=== PATIENT | male | born 2000 | race Caucasian/White ===

== ENCOUNTER → 2024-08-18 | Outpatient (CLI) | payer OTHER, SELFPAY ==
--- NOTE | 2024-08-18 15:27 | XR_ITS ---
Examination: MRI left hip without intravenous contrast. Date and time of exam: August 18, 2024 1554 hrs. Indications: Bilateral hip pain beginning 2020, stabbing pain in the left hip Technique: Multiple MRI images of the left hip have been obtained T1 weighted coronal sections, TR 500, TE 12 Proton density coronal fat saturated images, TR 3000, TE 71 T2-weighted coronal images, 5850, TE 104 T1-weighted axial images, TR 521, TE 12 T2-weighted axial fat suppressed images, TR 5730, TE 103. Findings: No left hip fracture bone contusion or marrow edema Adequate marrow signal right hip and bones of the pelvis Suspicious for anterior inferior left hip labral tear Contracted urinary bladder No prostatomegaly Impression: Recommend this patient return for MR arthrography followed by post intra-articular contrast images left hip to exclude anterior inferior left hip labral tear
--- NOTE | 2024-08-18 15:27 | XR_ITS ---
Examination: MRI right hip without intravenous contrast. Date and time of exam: August 18, 2024 1554 hrs. Indications: Intraoperative 2020 with persistent hip pain Technique: Multiple MRI images of the right hip have been obtained T1 weighted coronal sections, TR 500, TE 12 Proton density coronal fat saturated images, TR 3000, TE 71 T2-weighted coronal images, 5850, TE 104 T1-weighted axial images, TR 521, TE 12 T2-weighted axial fat suppressed images, TR 5730, TE 103. Findings: No right hip marrow edema, bone contusion, occult fracture No avascular necrosis No labral tear noted Negative for greater trochanteric bursitis right hip Minimal hip effusion Adequate marrow signal bones of the pelvis Contracted urinary bladder No free fluid in the pelvis No prostatomegaly Impression: No occult fracture, bone contusion, marrow edema or avascular necrosis No labral tear identified
== END | disposition home or self-care (01) ==
LOC: SMRI 15:01
PROVIDERS: PCP Family Medicine; Referring Provider Family Medicine; Visit Provider Family Medicine
DX: S79.919A Unspecified injury of unspecified hip, initial encounter (principal); S73.102A Unspecified sprain of left hip, initial encounter; X58.XXXA Exposure to other specified factors, initial encounter
CPT/HCPCS: 73721

== ENCOUNTER 2025-06-10 10:40 | Emergency (ER) | payer OTHER, SELFPAY ==
--- NOTE | 2025-06-10 11:09 | PD.EDRME ---
Rapid Medical Screening Exam RME Arrival date/time: 06/10/25 10:40 24-year-old male presents to the emergency department today for complaints of nausea vomiting and diarrhea which began last night Chief Complaint: Nausea/Vomiting/Diarrhea
[2025-06-10 11:17] VITALS: BP 125/62; PULSE 106; RESP 16; TEMP 37.1; O2SAT 99; BMI 26.0
[2025-06-10 11:35] LABS: Basophils # (Auto) 0.0 Thou/mm3 (0.0-0.2); Basophils % (Auto) 0 % (0-2.5); Eosinophils # (Auto) 0.0 Thou/mm3 (0.0-0.5); Eosinophils % (Auto) 0 % (0-10); Hematocrit 49.6 % (41.0-53.0); Hemoglobin 16.4 g/dL (13.5-16.0); Immature Granulocytes Auto 0.01 Thou/mm3 (0.00-0.00); Lymphocytes # (Auto) 0.3 Thou/mm3 (1.0-4.8); Lymphocytes % (Auto) 5 % (10-50); Mean Corpuscular HGB Conc 33.1 g/dl (31.0-37.0); Mean Corpuscular Hemoglobin 28.7 pg (25.0-35.0); Mean Corpuscular Volume 87 fL (80-100); Monocytes # (Auto) 0.3 Thou/mm3 (0.0-0.8); Monocytes % (Auto) 7 % (0-12); Neutrophils # (Auto) 4.2 Thou/mm3 (1.8-7.7); Neutrophils % (Auto) 87 % (37-80); Nucleated Red Blood Cell # 0.00 Thou/mm3 (0.00-0.00); Nucleated Red Blood Cell % 0 /100 WBC (0); Platelet Count 191 Thou/mm3 (140-440); RDW Standard Deviation 43.0 fL (35.1-43.9); Red Blood Count 5.71 Miln/mm3 (4.50-5.90); White Blood Count 4.8 Thou/mm3 (3.8-10.6)
[2025-06-10 11:52] LABS: Alanine Aminotransferase 95 U/L (10-49); Albumin, Serum 5.3 gm/dL (3.5-5.0); Albumin/Globulin Ratio 2.1 (1.2-2.2); Alkaline Phosphatase 57 U/L (46-116); Anion Gap 9 (7-16); Aspartate Amino Transferase 63 U/L (0-34); BUN/Creatinine Ratio 14 Ratio (12-20); Bilirubin,Total 1.4 mg/dL (0.3-1.2); Blood Urea Nitrogen 18 mg/dL (9-23); Calcium 10.6 mg/dL (8.3-10.6); Calcium (Corrected) 10.6 mg/dL (8.5-10.1); Carbon Dioxide 26.7 mMol/L (20.0-31.0); Chloride 103 mMol/L (98-107); Creatinine (Component) 1.3 mg/dL (0.6-1.3); Estimated Creatinine Clearance 96.2 mL/min (>60); Globulin 2.5 gm/dL (2.3-3.5); Glucose 136 mg/dL (74-106); Osmolality,Calculated 281 (275-295); Potassium 4.7 mMol/L (3.4-5.1); Sodium 139 mMol/L (136-145); Total Protein 7.8 gm/dL (5.7-8.2); eGFR > 60 See Note
[2025-06-10 12:12] LABS: Collection Type, Urine Clean Catch; Squamous Epithelial Cell,Urine 0 /hpf (0-5)
[2025-06-10 12:28] LABS: Bilirubin,Urine 1+ (Negative); Blood,Urine Negative (Negative); Clarity,Urine Clear (Clear/Hazy); Color,Urine Yellow (Lt Yel-Yel); Culture Indicated,Urine Not Indicated; Glucose, Urine Negative (Negative); Ketones,Urine 1+ (Negative); Leukocyte Esterase,Urine Negative (Negative); Nitrite,Urine Negative (Negative); PH,Urine 6.0 (5.0-7.0); Protein,Urine 1+ (Neg - Trace); Specific Gravity,Urine 1.025 (1.001-1.035); Urobilinogen,Urine 0.2 mg/dL (0.0-1.0)
[2025-06-10 12:40] LABS: RBC,Urine 3 /hpf (0-3); WBC,Urine 1 /hpf (0-5)
--- NOTE | 2025-06-10 13:26 | PD.EDNV ---
Nausea/Vomit./Diarrhea-RME/HPI General Chief complaint: Nausea/Vomiting/Diarrhea Stated complaint: N/V/D SINCE LAST NIGHT Time Seen by Provider: 06/10/25 13:13 Arrival date/time: 06/10/25 10:40 RME / HPI RME / HPI Narrative: 24-year-old male presents to the emergency department today for complaints of nausea vomiting and diarrhea which began last night. Severity of symptoms moderate. At least 20 times nonbloody. Patient cannot take anything down due to vomiting. Patient denies any abdominal pain. Patient also complaining of worsening chronic back pain, he got injured while in the morning, currently seen in [facility]. Denies any other complaints no medication was taken prior to ER visit. Patient denies any smoking marijuana. Related Data Previous Rx's ?Medication ?Instructions ?Recorded famotidine 40 mg tablet (Pepcid) 40 mg PO BID #20 tabs 06/10/25 ibuprofen 800 mg tablet 800 mg PO TID PRN pain #30 tabs 06/10/25 methocarbamol 500 mg tablet 500 mg PO Q8H #20 tabs 06/10/25 ondansetron HCl 4 mg tablet 4 mg PO Q8H 5 days #15 tabs 06/10/25 Allergies Allergy/AdvReac Type Severity Reaction Status Date / Time No Known Allergies Allergy Verified 06/10/25 13:28 Review of Systems Review of Systems Narrative Review of Systems: Review of system reviewed and within normal limits except mentioned in HPI ED Exam Narrative Physical exam: VITAL SIGNS: Reviewed. GENERAL APPEARANCE: Alert and interactive, follows commands, no acute distress, HEAD AND FACE: Non-traumatic. ENT: PERRL, pink conjunctivitis, eyelid no trauma, Mucous membrane dry NECK: Supple, nontender, no nuchal rigidity. CHEST: No tenderness, no crepitus, no paradoxical movement, no retractions. LUNGS: Clear, well ventilated, symmetric, no rales, no wheezing, no ronchi, no stridor, good breath sounds bilaterally. HEART: Regular rate, regular rhythm, no murmur, no gallops. ABDOMEN: Soft, positive bowel sounds, nondistended, no guarding, nontender, no rebound, no masses, RECTAL: Deferred. GENITAL: Deferred. NEUROLOGICAL: Gross motor function intact sensory function intact, Appropriate for age. MUSCULOSKELETAL: low back tenderness, full range of motion. EXTREMITIES: Nontender, full range of motion. SKIN: Color pink, dry, no rash, no lacerations, no abrasions, no contusions. LYMPHATICS: Deferred. Course Quality Measures none Orders Category Date Time Status Bedside COVID-19 Antigen Test NOW Care 06/10/25 11:09 Active Bedside Influenza A&B Antigen Test NOW Care 06/10/25 11:09 Active CBC Stat Lab 06/10/25 11:24 Completed Comprehensive Metabolic Panel Stat Lab 06/10/25 11:24 Completed UA, C/S IF [Urinalysis, C/S if Indicated] Stat Lab 06/10/25 12:05 Completed DiphenhydrAMINE INJ [Benadryl Inj] Med 06/10/25 13:24 Discontinued 25 mg IVP X1 ONE Famotidine Inj [Pepcid Inj] Med 06/10/25 13:25 Discontinued 20 mg IVP X1 ONE Ketorolac Inj [Toradol Inj] Med 06/10/25 13:24 Discontinued 30 mg IVP X1 ONE Loperamide [Imodium] Med 06/10/25 11:15 Discontinued 4 mg PO X1 ONE Metoclopramide Inj [Reglan Inj] Med 06/10/25 13:24 Discontinued 10 mg IVP X1 ONE Ondansetron Odt [Zofran Odt] Med 06/10/25 11:08 Discontinued 4 mg PO X1 ONE Ringers Lactated 1000 ml [Lactated Ringers] 1,000 ml Med 06/10/25 13:24 Discontinued IV 999 mls/hr Ringers Lactated 1000 ml [Lactated Ringers] 1,000 ml Med 06/10/25 13:24 Discontinued IV 999 mls/hr Vital Signs Vital signs: Vital Signs Temperature 98.7 F 06/10/25 11:17 Pulse Rate 106 H 06/10/25 11:17 Respiratory Rate 16 06/10/25 11:17 Blood Pressure 125/62 06/10/25 11:17 Pulse Oximetry (%) 99 06/10/25 11:17 Oxygen Delivery Method Room Air 06/10/25 11:17 Nausea/Vomiting/Diarrhea MDM Narrative MDM Narrative:: 24-year-old male presents to the emergency department today for complaints of nausea vomiting and diarrhea which began last night. Severity of symptoms moderate. At least 20 times nonbloody. Patient cannot take anything down due to vomiting. Patient denies any abdominal pain. Patient also complaining of worsening chronic back pain, he got injured while in the morning, currently seen in [facility]. Denies any other complaints no medication was taken prior to ER visit. Patient denies any smoking marijuana. Patient CBC came back unremarkable. CMP also came back normal except for slightly elevated total bili 1.4 AST of 63 alkaline phos of 93. Patient is not having any abdominal pain. Urinalysis no UTI. Further imaging is not needed at this time patient is not having any cauda equina syndrome. Patient received 2 L of IV fluids, Benadryl, Pepcid, Toradol, Reglan, and loperamide with significant proving of symptoms. Patient is ambulatory. No more vomiting in the ED. P.o. tolerating well. Patient appears nontoxic and hemodynamically stable .Decision to discharge the patient. The patient/family was given an opportunity to ask questions and understood their discharge instructions. Discharge instructions specifically included follow up provider and time frame, current and/or new medications and possible side effects, indications for sooner follow up or return to the emergency department, and the expected course of current diagnosis. Patient reports feeling better as well and giving evidence of significant clinical improvement, I believe patient is now a candidate for discharge. Patient data External records reviewed:: None Clinical information provided by:: patient Social determinants that could affect healthcare access:: none Patient has the following chronic illnesses:: History of chronic back pain How is presenting disease/condition affected by chronic disease/condition?: no chronic disease Evaluation data The following diagnostics were reviewed and interpreted by me:: lab results Lab and/or radiology exams considered but not ordered:: None Interpretation Summary: See results MDM Medications / Prescriptions Medications / Prescriptions considered but not ordered:: None Medication administrations:: Medication Administration History Discontinued Medications Diphenhydramine HCl (Diphenhydramine Inj 50 Mg/Ml Vial) 25 mg IVP X1 ONE Stop: 06/10/25 13:25 Famotidine (Famotidine Inj 10 Mg/Ml Vial 2 Ml) 20 mg IVP X1 ONE Stop: 06/10/25 13:26 Lactated Ringer's (Lactated Ringers) 1,000 mls @ 999 mls/hr IV .Q1H1M ONE Stop: 06/10/25 14:24 Last Admin: 06/10/25 14:04 Dose: 999 mls/hr Documented By: EUGENIO Lactated Ringer's (Lactated Ringers) 1,000 mls @ 999 mls/hr IV .Q1H1M ONE Stop: 06/10/25 14:24 Last Admin: 06/10/25 14:06 Dose: 999 mls/hr Documented By: OA Ketorolac Tromethamine (Ketorolac Inj 30 Mg/Ml Vial) 30 mg IVP X1 ONE Stop: 06/10/25 13:25 Loperamide HCl (Loperamide 2 Mg Capsule) 4 mg PO X1 ONE Stop: 06/10/25 11:16 Metoclopramide HCl (Metoclopramide Inj 5 Mg/Ml Vial 2 Ml) 10 mg IVP X1 ONE; Protocol Stop: 06/10/25 13:25 Ondansetron HCl (Ondansetron Odt 4 Mg Tabrap) 4 mg PO X1 ONE; Protocol Stop: 06/10/25 11:09 Last Admin: 06/10/25 13:43 Dose: 4 mg Documented By: OA See MDM Consultations Consultation(s) initiated? (list below): No Diagnosis Nausea Differential Diagnosis: food poisoning, gastroenteritis, dehydration and other (Acute on chronic back pain) Most likely diagnosis given after review of the tests above:: Acute on chronic back pain, dehydration, gastroenteritis Admission Indicated Admission indicated?: not indicated Explain why admission is indicated or not indicated:: Stable Admission Request Was there a request for admission?: No Disposition Plan Disposition Plan: Discharge Discharge Attestation Discharge Attestation: The patient and all family members were given an opportunity to ask questions and understood the discharge instructions. Discharge instructions specifically effects, indications for sooner follow up or return to the emergency department, and the expected course of current diagnosis. Patient condition: Stable Discharge Plan Plan Patient Disposition: HOME (Self Care) Discharge Disposition comment: stable Prescriptions/Referrals Prescriptions/Med Rec: New famotidine [Pepcid] 40 mg tablet 40 mg PO BID Qty: 20 0RF ondansetron HCl 4 mg tablet 4 mg PO Q8H 5 Days Qty: 15 0RF methocarbamol 500 mg tablet 500 mg PO Q8H Qty: 20 0RF ibuprofen 800 mg tablet 800 mg PO TID PRN (Reason: pain) Qty: 30 0RF Referrals: Juliet Medina MD [Primary Care Provider] - In 1 week Problem List Clinical Impression: Gastroenteritis, Acute exacerbation of chronic low back pain Patient/Caregiver Discharge Instructions Discharge Activity: activity as tolerated Education Materials: ED Chronic Pain Additional Instructions: Thank you for the opportunity for serving you today. You are stable for discharged . You are advised to: Follow-up with your PCP in 1 to 2 days Return to ED for worsening of symptoms Increase oral fluids Take medication as prescribed Print Language: Ukrainian Stand Alone Forms: Kayla Award Info., Patient Portal Info Letter RIYA/EMORY Supervising Physician RIYA/EMORY Supervising Physician: MD Carola
[2025-06-10] MEDS: ONDANSETRON ODT 4 MG TABRAP PO (13:43)
[2025-06-10] MEDS: RINGERS LACTATED 1000 ML 1,000 ML 999 ML IV ×2 (14:04→14:06)
[2025-06-10] MEDS: KETOROLAC INJ 30 MG/ML VIAL IVP (15:59)
[2025-06-10] MEDS: METOCLOPRAMIDE INJ 5 MG/ML VIAL 2 ML 10 MG IVP (16:00)
[2025-06-10] MEDS: FAMOTIDINE INJ 10 MG/ML VIAL 2 ML 20 MG IVP (16:00)
[2025-06-10 16:49] VITALS: BP 122/77; PULSE 78
== END 2025-06-10 16:50 | disposition home or self-care (01) ==
PROVIDERS: Nurse Practitioner Primary Care; Emergency Provider Emergency Medicine; PCP Family Medicine
DX: K52.9 Noninfective gastroenteritis and colitis, unspecified (principal); G89.29 Other chronic pain; M54.50 Low back pain, unspecified
CPT/HCPCS: 36415; 80053; 81001; 85025; 96374; 96375; 99283; J1885; J2765; J3490; J7120; Q0162

== ENCOUNTER → 2025-08-04 | Outpatient (CLI) | payer OTHER, SELFPAY ==
--- NOTE | 2025-08-04 16:00 | XR_ITS ---
Examination: MRI chest without contrast Date and time of exam: August 04, 2025, 1634 hours INDICATIONS: Pain around the left collarbone area numbness and paresthesias radiating down the left arm and fingers beginning 2019 more frequent over the last year, brachial plexus abnormality Technique: Multiple MRI axial and sagittal sections upper chest obtained without intravenous contrast. Sagittal T2-weighted images, TR 3500, TE 118 T1 weighted transverse sections, TR 688 T8.5, T2-weighted sagittal sections T1 weighted sagittal sections TR 621, TE 30 T2 axial sections, TR 4, 190, TE 84. Findings: Moderate cervical dextroscoliosis Symmetrical neck muscle masses No supraclavicular lymphadenopathy Visualized clavicles appear intact Lung apices clear Soft tissue detail is reduced in this case which appears to be related to patient motion IMPRESSION: Limited study No supraclavicular or periclavicular masses noted Consider high-resolution shorter scan time CT chest post contrast follow-up
== END | disposition home or self-care (01) ==
PROVIDERS: PCP Family Medicine; Referring Provider Family Medicine; Visit Provider Family Medicine
DX: G54.0 Brachial plexus disorders (principal)
CPT/HCPCS: 71550